=== PATIENT | male | born 1990 | race Caucasian/White ===

== ENCOUNTER 2018-08-03 09:49 | Emergency (ER) | payer OTHER, SELFPAY ==
[2018-08-02 09:17] VITALS: BMI 27.6
[2018-08-03 09:51] VITALS: BP 138/74; PULSE 84; RESP 16; TEMP 36.6; O2SAT 99; BMI 27.6
--- NOTE | 2018-08-03 10:06 | ED.DCSUM_ITS ---
- ER Visit Summary Date of Service: 08/03/18 Chief Complaint: Abscess History of Present Illness: The patient is a 28 M [id number] presenting with an abscess on his left wrist that started 3 days ago. He initially thought that it was a spider bite. He went to the urgent care yesterday and was put on Bactrim. It is now becoming bigger and is draining purulent material. It is similar to an abscess he had in the past. He denies fever, pain with range of motion, or history of IV drug abuse. Physical Examination: He has a 4 x 5 cm raised area of fluctuance on the left wrist dorsal surface just proximal to the hand. No pain with range of motion. No associated streaks of lymphangitis. Normal distal neurovascular examination. Test Results: Emergency Department Course and Treatment: He does appear to have an abscess. I obtained verbal informed consent. Sterile precautions maintained. Surrounding wound edges cleansed with Shur-Clens. Sterile gloves used. Field block performed using 5 cc of lidocaine with epinephrine. Cruciate 1 cm x 1/2 cm incision made using #11 supple. Loculations broken up using curved Meaghan forceps. 4-5 cc of purulent material expressed. Loculations broken up again and wound cavity irrigated using normal saline-50 cc using a syringe. 3 cm of half-inch packing placed in wound left open. Sterile dressing placed. I explained that this could get worse and that he needs to come back for a wound check in 24 hours, sooner if he is getting worse or develop streaks of lymphangitis. He was given a referral for plastic surgery for follow-up but told to just come back here if he is unable to get an appointment in the morning. I told him that it is unlikely that he will be L to get an appointment tomorrow so he understands he should just present back to the emergency department for a reevaluation. Treatment Plan: Continue oral Bactrim, warm compresses, packing removal and wound check in 24 hours, sooner if getting worse Disposition: Home stable Impression: Left wrist abscess This note was generated with [employer] dictation software. It may contain incorrect words, spelling, and punctuation that were not noted in review of the chart prior to signing ED Disposition - Plan for ED Patient: Instructions: ED Abscess IandD Referrals: Raoul Greenwood MD [STAFF PHYSICIAN] - 1 Day for another exam (or come back to ER if unabel to get appt. )
[2018-08-03 10:58] VITALS: TEMP 36.6
== END 2018-08-03 11:02 | disposition home or self-care (01) ==
LOC: ED 10:21
PROVIDERS: Emergency Provider Emergency Medicine
DX: L02.414 Cutaneous abscess of left upper limb (principal); Z79.899 Other long term (current) drug therapy
CPT/HCPCS: 10060; 99282